=== PATIENT | female | born 1975 | race Caucasian/White ===

== ENCOUNTER → 2017-06-28 | Outpatient (CLI) | payer MEDICAID ==
[2017-06-28 17:06] LABS: BASOPHIL % 0.9 % (0-2); PLATELET COUNT 277 x10^3mcL (130-400); RED CELL DISTRIBUTION WIDTH 13.4 % (11.5-14.5)
[2017-06-28 17:18] LABS: ALBUMIN 4.3 g/dL (3.4-5.0); ALKALINE PHOSPHATASE 86 U/L (46-116); ALT/SGPT 36 U/L (14-59); AST/SGOT 18 U/L (15-37); BILIRUBIN TOTAL 0.4 mg/dL (0.20-1.00); CALCIUM 9.2 mg/dL (8.5-10.1); CARBON DIOXIDE 24.5 mmol/L (21-32); CHLORIDE SERUM 102 mmol/L (98-107); CREATININE SERUM 0.9 mg/dL (0.6-1.0); GFR1 > 60 mL/min; GLUCOSE SERUM 98 mg/dL (74-106); SODIUM SERUM 136 mmol/L (136-145); TOTAL PROTEIN, SERUM 8.1 g/dL (6.4-8.2)
[2017-06-28 17:26] LABS: FREE T4 0.89 ng/dL (0.76-1.46); T4(THYROXINE) 5.8 ug/dL (4.7-13.3)
[2017-06-28 17:37] LABS: T3 TOTAL 0.99 ng/mL
== END | disposition home or self-care (01) ==
LOC: LB 16:16
PROVIDERS: Family Medicine
DX: F31.60 Bipolar disorder, current episode mixed, unspecified (principal); Z76.89 Persons encountering health services in other specified circumstances
CPT/HCPCS: 84439